=== PATIENT | male | born 1995 | race Two or more races ===

== ENCOUNTER 2018-05-24 18:11 | Emergency (ER) | payer SELFPAY ==
[2018-05-24 21:47] VITALS: BP 104/66
== END 2018-05-24 21:47 | disposition home or self-care (01) ==
LOC: ED 18:11
DX: S42.022A Displaced fracture of shaft of left clavicle, initial encounter for closed fracture (principal); X58.XXXA Exposure to other specified factors, initial encounter; Y93.67 Activity, basketball; Y92.310 Basketball court as the place of occurrence of the external cause; Y99.8 Other external cause status